=== PATIENT | female | born 1980 | race Caucasian/White ===

== ENCOUNTER 2016-09-14 17:20 | Emergency (ER) | payer OTHER ==
[2016-09-14] MEDS ORDERED: Sodium Chloride 0.9% 1,000 ML IV STA (17:35)
[2016-09-14 17:45] VITALS: BP 104/62; PULSE 87; RESP 16; TEMP 98; O2SAT 98
--- NOTE | 2016-09-14 17:45 | ED PDOC ---
HPI: Female Pain Time Seen by Provider: 09/14/16 17:43 Chief Complaint (Nursing): Female Genitourinary Chief Complaint (Provider): VAGINAL BLEEDING History Per: Patient (35 Y/O FEMALE APPROX 10 WEEK GESTATION HERE FOR VAGINAL BLEEDING X [address] SENT IN BY DR. TAMMY MASTERS WHO COULD NOT FIND HEARTBEAT ON PHYSICAL EXAM. PATIENT HAS NOT HAD US OF YET. DENIES ANY ABDOMINAL PAIN. ) Past Medical History Reviewed: Historical Data, Nursing Documentation, Vital Signs Vital Signs: Last Vital Signs Temp 98.0 F 09/14/16 17:41 Pulse 87 09/14/16 17:41 Resp 16 09/14/16 17:41 BP 104/62 09/14/16 17:41 Pulse Ox 98 09/14/16 17:41 - Family History Family History: States: No Known Family Hx - Allergies Allergies/Adverse Reactions: Allergies Allergy/AdvReac Type Severity Reaction Status Date / Time No Known Allergies Allergy Verified 09/14/16 17:28 Review of Systems ROS Statement: Except As Marked, All Systems Reviewed And Found Negative Genitourinary Female: Positive for: Vaginal Bleeding Physical Exam - Reviewed Nursing Documentation Reviewed: Yes Vital Signs Reviewed: Yes - Physical Exam Appears: Positive for: Well, Non-toxic, No Acute Distress Head Exam: Positive for: ATRAUMATIC, NORMAL INSPECTION, NORMOCEPHALIC Skin: Positive for: Normal Color, Warm, DRY Eye Exam: Positive for: EOMI, Normal appearance, PERRL ENT: Positive for: Normal ENT Inspection Neck: Positive for: Normal, Painless ROM Cardiovascular/Chest: Positive for: Regular Rate, Rhythm Respiratory: Positive for: CNT, Normal Breath Sounds Gastrointestinal/Abdominal: Positive for: Normal Exam, Bowel Sounds, Soft Pelvic Exam: Positive for: Other (PATIENT REFUSES DONE PRIOR TO ARRIVAL IN OB 'S OFFICE.) Back: Positive for: Normal Inspection Extremity: Positive for: Normal ROM Neurologic/Psych: Positive for: Alert, Oriented - Laboratory Results Result Diagrams: 09/14/16 18:10 09/14/16 18:10 - ECG O2 Sat by Pulse Oximetry: 98 Disposition - Clinical Impression Clinical Impression: Threatened - Patient ED Disposition Is Patient to be Admitted: Transfer of Care - Disposition Disposition: Transfer of Care Disposition Time: 20:12 Condition: FAIR Patient Signed Over To: Karuna Norris Handoff Comments: pending us reading/blood type/beta
[2016-09-14 18:30] LABS: BASO % 0.2 % (0.0-2.0); EOS # 0.1 K/uL (0.0-0.7); EOS % 0.7 % (0.0-4.0); HEMATOCRIT 36.3 % (34.0-47.0); LYMPH # 2.9 K/uL (1.0-4.3); LYMPH % 28.5 % (20.0-40.0); MEAN CELL VOLUME 73.8 fl (81.0-99.0); MEAN CORPUSCULAR HEMOGLOBIN 22.8 pg (27.0-31.0); MEAN CORPUSCULAR HGB CONC 30.9 g/dL (33.0-37.0); MEAN PLATELET VOLUME 7.5 fl (7.2-11.7); MONO # 0.8 K/uL (0.0-0.8); MONO % 7.5 % (0.0-10.0); NEUT # 6.5 K/uL (1.8-7.0); NEUT % 63.1 % (50.0-75.0); WHITE BLOOD COUNT 10.2 K/uL (4.8-10.8)
[2016-09-14 19:05] LABS: BLOOD UREA NITROGEN 10 mg/dl (7-17); CALCIUM 9.9 mg/dL (8.4-10.2); CARBON DIOXIDE 24 mmol/L (22-30); CHLORIDE 103 mmol/L (98-107); GFR AFRICAN-AMERICAN > 60; GLUCOSE,RANDOM 105 mg/dL (65-105); POTASSIUM 4.3 MMOL/L (3.6-5.0); SODIUM 139 mmol/l (132-148)
--- NOTE | 2016-09-14 20:52 | US ---
EXAM: US , Transvaginal CLINICAL HISTORY: 35 years old, female; Signs and symptoms; Lmp or gestational age (in weeks): 06/30/16; Antepartum complications; Hemorrhage; Additional info: Threatened TECHNIQUE: Real-time transvaginal obstetrical ultrasound of the maternal pelvis and a first trimester with image documentation. Transvaginal imaging was used for better evaluation of the fetus and adnexa. COMPARISON: No relevant prior studies available. FINDINGS: Gestation: Probable irregular gestational sac. No yolk sac. No pole. Mean sac diameter of 1.0 cm, correlating with gestational age of 5 weeks 0 days. Uterus/cervix: No subchorionic hemorrhage. No cervical dilatation or effacement. Ovaries: RIGHT ovary: Probable 1.8 x 2.0 x 1.6 cm corpus luteal cyst. LEFT ovary: Normal. No adnexal masses. Free fluid: No significant free fluid. IMPRESSION: 1. Intrauterine , of uncertain viability. Recommend followup. 2. Incidental/non-acute findings are described above.
--- NOTE | 2016-09-14 21:07 | ED PDOC ---
- Laboratory Results Result Diagrams: 09/14/16 18:10 09/14/16 18:10 - ECG O2 Sat by Pulse Oximetry: 98 - Progress ED Course And Treament: case endorsed to typewriter mechanic from [facility] pending labs, u/s EXAM: US , Transvaginal CLINICAL HISTORY: 35 years old, female; Signs and symptoms; Lmp or gestational age (in weeks): ; Antepartum complications; Hemorrhage; Additional info: Threatened TECHNIQUE: Real-time transvaginal obstetrical ultrasound of the maternal pelvis and a first trimester with image documentation. Transvaginal imaging was used for better evaluation of the fetus and adnexa. COMPARISON: No relevant prior studies available. FINDINGS: Gestation: Probable irregular gestational sac. No yolk sac. No pole. Mean sac diameter of 1.0 cm, correlating with gestational age of 5 weeks 0 days. Uterus/cervix: No subchorionic hemorrhage. No cervical dilatation or effacement. Ovaries: RIGHT ovary: Probable 1.8 x 2.0 x 1.6 cm corpus luteal cyst. LEFT ovary : Normal. No adnexal masses. Free fluid: No significant free fluid. IMPRESSION: 1. Intrauterine , of uncertain viability. Recommend followup. 2. Incidental/non-acute findings are described above. 08/26/16 beta: 16,544 09/14/16 9,[address] Burton, patient's Scheduler; agrees likely miscarriage. Advised follow up in office after 9am. Patient educated on findings, discharged with instructions to follow up. Return to ED for worsening/concerning symptoms. Disposition - Clinical Impression Clinical Impression: Spontaneous , Ovarian cyst - POA Present On Arrival: None - Disposition Disposition: Routine/Home Disposition Time: 21:17 Condition: STABLE Instructions: Spontaneous Miscarriage (ED), Ovarian Cyst (ED)
== END 2016-09-14 21:28 | disposition home or self-care (01) ==
LOC: H.ER 17:20
DX: O03.9 Complete or unspecified spontaneous abortion without complication (principal); N83.209 Unspecified ovarian cyst, unspecified side